=== PATIENT | female | born 1935 | race African-American/Black ===

== ENCOUNTER 2017-03-16 12:27 | Inpatient (IN) ==
[2017-03-16] MEDS ORDERED: ASPIRIN PO STA (12:50)
--- NOTE | 2017-03-16 13:04 | EKG Report ---
Test Performed on : 03/16/2017 12:54:35 PM Test Reason : CHEST PAIN Blood Pressure : / mmHG Vent. Rate : 111 BPM Atrial Rate : 111 BPM P-R Int : 172 ms QRS Dur : 082 ms QT Int : 312 ms P-R-T Axes : 071 062 086 degrees QTc Int : 424 ms Sinus tachycardia. Otherwise normal ECG When compared with ECG of 12-JUL-2014 20:02, premature ventricular complexes. are no longer present Unconfirmed Result
[2017-03-16 13:12] LABS: MANUAL DIFF NEEDED? NO
[2017-03-16 13:14] LABS: BASO% 0.4 % (0.0-0.8); EOS# 0.08 X1000 (0.0-0.7); EOS% 1.5 % (0.0-10.0); HEMATOCRIT 35.2 % (37.0-47.0); HEMOGLOBIN 11.2 g/dL (12.0-16.0); IMM GRAN# 0.01 X1000 (0.0-0.04); IMM GRAN% 0.2 % (0.0-0.5); LYMPH# 1.49 X1000 (1.2-3.4); LYMPH% 27.7 % (20.5-51.1); MCHC 31.8 g/dL (33-37); MCV 91.2 FL (81-99); MONO% 7.4 % (1.7-9.3); MPV 8.9 FL (7.4-10.4); NEUT% 62.8 % (42.2-75.2); PLT 288 X1000 (130-400); RBC 3.86 XMIL (4.2-5.4)
[2017-03-16] MEDS ORDERED: MORPHINE IV ONE (13:31)
[2017-03-16] MEDS ORDERED: LOPRESSOR IV ONE (13:31)
[2017-03-16] MEDS ORDERED: ZOFRAN IV ONE (13:31)
[2017-03-16] MEDS ORDERED: NS 500 ML IV ONE (13:31)
[2017-03-16 13:34] LABS: INR 1.08 (0.86-1.15); PROTIME 14.3 Seconds (12.1-15.5)
[2017-03-16 13:35] LABS: PTT PL 32.9 Seconds (22.6-43.9)
--- NOTE | 2017-03-16 13:37 | EKG Report ---
Test Performed on : 03/16/2017 1:26:15 PM Test Reason : cp Blood Pressure : / mmHG Vent. Rate : 105 BPM Atrial Rate : 105 BPM P-R Int : 174 ms QRS Dur : 072 ms QT Int : 316 ms P-R-T Axes : 086 043 080 degrees QTc Int : 417 ms Sinus tachycardia. Otherwise normal ECG When compared with ECG of 16-MAR-2017 12:54, (Unconfirmed) No significant change was found Unconfirmed Result
[2017-03-16 13:38] LABS: AGAP 12; ALKALINE PHOSPHATASE 53 U/L (32-104); BUN 59 mg/dL (8-22); CALCIUM 9.2 mg/dL (8.8-10.2); CHLORIDE 103 mmol/L (98-107); CK PROFILE 46 U/L (24-173); COSMO 286; GOT 19 U/L (10-30); GPT 15 U/L (10-36); MAGNESIUM 2.1 mg/dL (1.5-2.7); POTASSIUM 5.3 mmol/L (3.5-5.1); SODIUM 133 mmol/L (136-145); TCO2 18 mmol/L (25-35); TOTAL BILIRUBIN < 0.15 mg/dL (0.20-1.00); TOTAL PROTEIN 7.7 g/dL (6.3-8.3)
--- NOTE | 2017-03-16 13:42 | Diag Imaging Result Document ---
PROCEDURE NAME: CHEST-PORTABLE - 03/16/2017 PORTABLE CHEST: COMPARISON: 10/02/2015. FINDINGS: Poor inspiratory effort. Heart is not enlarged. Mild areas of increased density which may be fibrosis. No consolidation. No pleural effusions. There are calcified right hilar and paratracheal lymph nodes. IMPRESSION: Fibrosis.
[2017-03-16 15:24] LABS: BILIRUBIN URINE NEGATIVE (NEGATIVE); BLOOD URINE NEGATIVE (NEGATIVE); CLARITY SL. CLOUDY (CLEAR); COLOR YELLOW; GLUCOSE URINE NEGATIVE (NEGATIVE); LEUKOCYTES URINE 1+ (NEGATIVE); NITRITE URINE POSITIVE (NEGATIVE); PH URINE 6.5; PROTEIN URINE NEGATIVE (NEGATIVE); UROBILINOGEN URINE NORMAL
[2017-03-16 15:39] LABS: URINE CULTURE PL NEEDED? YES; URINE EPITHELIAL CELLS <10 /HPF (<10); URINE SOURCE CLEAN CATCH; URINE WBC 40 /HPF (<10)
[2017-03-16] MEDS ORDERED: HUMULIN R IV ONE (16:37)
[2017-03-16] MEDS ORDERED: D50W SYRINGE IV ONE (16:37)
[2017-03-16] MEDS ORDERED: HUMULIN R (PARKWAY) ONE (16:47)
--- NOTE | 2017-03-16 16:51 | PROVIDER DOCUMENTATION ---
This chart was entered by Aramis Abernathy Scribe, acting as scribe for Chay Clayton MD. HPI-General Adult - General Chief Complaint: Extremity Pain Stated Complaint: left arm/shoulder pain Time Seen by Provider: 03/16/17 12:43 Source: patient Allergies/Adverse Reactions: Patient Allergies Allergy/AdvReac Type Severity Reaction Status Date / Time No Known Allergies Allergy Verified 10/02/15 16:49 Home Medications: Home Medication List Medication Instructions Recorded Confirmed Last Taken Type Carvedilol [Coreg] 12.5 mg PO BID 10/20/15 09/26/16 Unknown History Hydrocodone Bit/Acetaminophen 1 tab PO Q4H PRN 10/20/15 09/26/16 Unknown History [Hydrocodon-Acetaminophen 5-325] Olmesartan/Amlodipin/Hcthiazid 1 tab PO DAILY 10/20/15 09/26/16 Unknown History [Tribenzor 20-5-12.5 mg Tablet] Acetaminophen with Codeine 1 each PO Q6H PRN PRN #30 tablet 09/26/16 Unknown Rx [Tylenol with Codeine #3 Tablet] - History of Present Illness -Gen Adult Nature of Presenting Problems: patient is a 82 y/o F that presents with left side and shoulder/arm pain since last pm. patient reports no shortness of breath, n/v/d, or fever/chills, no cough or congestion. has some left sided chest pain Location of Pain/Injury: reports: chest, upper extremity (left arm, shoulder), upper body (left side) Pain Radiation: reports: no radiation Quality of Pain: reports: dull Severity: reports: mild Onset/Duration: reports: gradual, last night Timing: reports: still present, constant Context/Activities at Onset: reports: none Modifying Factors: worse with: movement Associated Symptoms: reports: genitourinary problems, joint pain, muscle aches. denies: back/neck pain, constipation, diarrhea, fever/chills, nausea, vomiting Similar Symptoms Previously?: Yes Recently seen or treated by another doctor?: No Review of Systems - Adult - REVIEW OF SYSTEMS - ADULT Constitutional: denies: chills, fever Eyes: reports: no symptoms reported Ears, Nose, Mouth & Throat: reports: no symptoms reported Cardiovascular: reports: chest pain. denies: orthopnea, palpitations Respiratory: denies: cough, shortness of breath, wheezing Gastrointestinal: reports: no symptoms reported Genitourinary: reports: dysuria. denies: frequency, hematuria Musculoskeletal: reports: joint pain, muscle aches. denies: back pain, neck pain Integumentary: reports: no symptoms reported Neurological: reports: no symptoms reported Psychiatric: reports: no symptoms reported Endocrine: reports: no symptoms reported Hematologic/Lymphatic: reports: no symptoms reported Allergic/Immunologic: reports: no symptoms reported All Other Systems: Reviewed and Negative Past History - Adult - PAST MEDICAL HISTORY-ADULT Review of Records: reports: Old Records Reviewed, Nursing Assessment Review, Medications Reviewed Cardiovascular: reports: HTN Obstetrical/Gynecological: reports: uterine/ovarian cancer - PRIOR SURGERIES/PROCEDURES Surgical/Procedure History: reports: reviewed, not pertinent - PRIOR HOSPITALIZATIONS Prior Hospitalizations: reports: for other non-related - IMMUNIZATION STATUS Childhood Immunizations: See Nurse Assessment Flu Vaccine: See Nurse Assessment - FAMILY HISTORY Family History: reviewed, not pertinent - SOCIAL HISTORY Smoking: quit greater than 1 year, cigarettes Living Situation: family Physical Exam-General - PHYSICAL EXAM-ADULT Initial Vital Signs Reviewed: Yes - CONSTITUTIONAL General Appearance: alert, anxious - EYES Eyes: PERRL/EOMI, pink conjunctivae - HEAD, EARS, NOSE, MOUTH & THROAT HENMT: normocephalic/atraumatic, moist mucous membranes, normal ENT inspection - NECK Neck: full range of motion, normal inspection - RESPIRATORY Respiratory: lungs clear, normal breath sounds, no respiratory distress, no accessory muscle use - CARDIOVASCULAR Cardiovascular: no edema, no murmur, tachycardia - GASTROINTESTINAL (ABDOMEN) Abdominal Exam: normal bowel sounds, non tender, soft, no organomegaly, no pulsatile mass - MUSCULOSKELETAL Extremity: no pedal edema, no calf tenderness, normal capillary refill, tenderness (left shoulder) - SKIN Integumentary: normal color, warm/dry - NEUROLOGIC Neurologic: grossly normal, no motor/sensory deficits - PSYCHIATRIC Psych/Mental Status: normal thought content, normal thought process, oriented x 3, anxious Progress - PLAN OF CARE/RESULTS Progress/Plan/Lab Results: Vital Signs - 8 hr 03/16/17 12:28 Temperature 97.3 F L Pulse Rate 113 H Respiratory Rate 18 Blood Pressure 152/99 O2 Sat by Pulse Oximetry 97 Laboratory Results - last 24 hr 03/16/17 13:09 WBC 5.38 RBC 3.86 L Hgb 11.2 L Hct 35.2 L MCV 91.2 MCH 29.0 MCHC 31.8 L RDW Std Deviation 11.9 Plt Count 288 MPV 8.9 Immature Gran % (Auto) 0.2 Neut % (Auto) 62.8 Lymph % (Auto) 27.7 [place] % (Auto) 7.4 Eos % (Auto) 1.5 Baso % (Auto) 0.4 Immature Gran # (Auto) 0.01 Neut # (Auto) 3.38 Lymph # (Auto) 1.49 [place] # (Auto) 0.40 Eos # (Auto) 0.08 Baso # (Auto) 0.02 Orders Category Date Time Status Cardiac Monitoring DIRECTED Care 03/16/17 12:51 Active Saline Loc NOW Care 03/16/17 12:51 Active CHEST-PORTABLE [RAD] Stat Exams 03/16/17 12:51 Taken CBC WITH ELECTRONIC DIFF [HEME] Stat Lab 03/16/17 13:09 Completed CK PROFILE [SP CHEM] Stat Lab 03/16/17 13:09 Received COMPREHENSIVE METABOLIC PANEL [CHEM] Stat Lab 03/16/17 13:09 Received D-DIMER [address] [COAG] Stat Lab 03/16/17 13:09 Received MAGNESIUM [CHEM] Stat Lab 03/16/17 13:09 Received PRO B-NATRIURETIC PEPTIDE Stat Lab 03/16/17 13:09 Received PR[address]IME WITH INR PL [COAG] Stat Lab 03/16/17 13:[address] [COAG] Stat Lab 03/16/17 13:09 Received TROPONIN T Stat Lab 03/16/17 13:09 Received ua [URINALYSIS PL W/POSS RFLX CULT] [URINALYSIS] Stat Lab 03/16/17 12:51 Uncollected Aspirin Med 03/16/17 12:50 Discontinued 325 mg PO STAT STA EKG [EKG] Stat Ther 03/16/17 12:51 Draft Vital Signs Temp Pulse Resp BP Pulse Ox 03/16/17 14:00 83 20 126/77 98 03/16/17 12:28 97.3 F L 113 H 18 152/99 97 No Known Allergies Allergy (Verified 10/02/15 16:49) Carvedilol [Coreg] 12.5 mg PO BID 10/20/15 Hydrocodone Bit/Acetaminophen [Hydrocodon-Acetaminophen 5-325] 1 tab PO Q4H PRN 12/06/15 Olmesartan/Amlodipin/Hcthiazid [Tribenzor 20-5-12.5 mg Tablet] 1 tab PO DAILY Acetaminophen with Codeine [Tylenol with Codeine #3 Tablet] 1 each PO Q6H PRN PRN #30 tablet 09/26/16 Laboratory 03/16/17 03/16/17 03/16/17 16:07 15:35 15:35 WBC RBC Hgb Hct MCV MCH MCHC RDW Std Deviation Plt Count MPV Immature Gran % (Auto) Neut % (Auto) Lymph % (Auto) [place] % (Auto) Eos % (Auto) Baso % (Auto) Immature Gran # (Auto) Neut # (Auto) Lymph # (Auto) [place] # (Auto) Eos # (Auto) Baso # (Auto) PT INR APTT (Factor Assay) D-Dimer Sodium Potassium 6.0 H* Chloride Carbon Dioxide Anion Gap BUN Creatinine Estimated GFR/1.73 m2 BUN/Creatinine Ratio Glucose Calculated Osmolality Calcium Magnesium Total Bilirubin AST ALT Alkaline Phosphatase Creatine Kinase 46 Troponin T < 0.010 Uiz-E-Ifnxmhyywsx Pept Total Protein Albumin Globulin Albumin/Globulin Ratio Urine Source Urine Color Urine Clarity Urine pH Ur Specific [place] Urine Protein Urine Ketones Urine Blood Urine Nitrite Urine Bilirubin Urine Urobilinogen Urine Microscopic RBC Urine WBC Urine Microscopic WBC Ur Epithelial Cells Urine Bacteria Urine Glucose 03/16/17 03/16/17 03/16/17 15:00 13:09 13:09 WBC 5.38 RBC 3.86 L Hgb 11.2 L Hct 35.2 L MCV 91.2 MCH 29.0 MCHC 31.8 L RDW Std Deviation 11.9 Plt Count 288 MPV 8.9 Immature Gran % (Auto) 0.2 Neut % (Auto) 62.8 Lymph % (Auto) 27.7 [place] % (Auto) 7.4 Eos % (Auto) 1.5 Baso % (Auto) 0.4 Immature Gran # (Auto) 0.01 Neut # (Auto) 3.38 Lymph # (Auto) 1.49 [place] # (Auto) 0.40 Eos # (Auto) 0.08 Baso # (Auto) 0.02 PT 14.3 INR 1.08 APTT (Factor Assay) 32.9 D-Dimer 0.42 Sodium Potassium Chloride Carbon Dioxide Anion Gap BUN Creatinine Estimated GFR/1.73 m2 BUN/Creatinine Ratio Glucose Calculated Osmolality Calcium Magnesium Total Bilirubin AST ALT Alkaline Phosphatase Creatine Kinase Troponin T Hcb-P-Boibtorvsmx Pept Total Protein Albumin Globulin Albumin/Globulin Ratio Urine Source CLEAN CATCH Urine Color YELLOW Urine Clarity SL. CLOUDY A Urine pH 6.5 Ur Specific [place] 1.010 Urine Protein NEGATIVE Urine Ketones NEGATIVE Urine Blood NEGATIVE Urine Nitrite POSITIVE A Urine Bilirubin NEGATIVE Urine Urobilinogen NORMAL Urine Microscopic RBC Not Reportable Urine WBC 1+ A Urine Microscopic WBC 40 Ur Epithelial Cells <10 Urine Bacteria 3+ Urine Glucose NEGATIVE 03/16/17 03/16/17 03/16/17 13:09 13:09 13:09 WBC RBC Hgb Hct MCV MCH MCHC RDW Std Deviation Plt Count MPV Immature Gran % (Auto) Neut % (Auto) Lymph % (Auto) [place] % (Auto) Eos % (Auto) Baso % (Auto) Immature Gran # (Auto) Neut # (Auto) Lymph # (Auto) [place] # (Auto) Eos # (Auto) Baso # (Auto) PT INR APTT (Factor Assay) D-Dimer Sodium 133 L Potassium 5.3 H Chloride 103 Carbon Dioxide 18 L Anion Gap 12 BUN 59 H Creatinine 1.3 H Estimated GFR/1.73 m2 39 BUN/Creatinine Ratio 45 Glucose 148 H Calculated Osmolality 286 Calcium 9.2 Magnesium 2.1 Total Bilirubin < 0.15 L AST 19 ALT 15 Alkaline Phosphatase 53 Creatine Kinase 46 Troponin T < 0.010 Gkg-M-Aedqaqnpmsr Pept 87 Total Protein 7.7 Albumin 4.0 Globulin 4.0 Albumin/Globulin Ratio 1.0 Urine Source Urine Color Urine Clarity Urine pH Ur Specific [place] Urine Protein Urine Ketones Urine Blood Urine Nitrite Urine Bilirubin Urine Urobilinogen Urine Microscopic RBC Urine WBC Urine Microscopic WBC Ur Epithelial Cells Urine Bacteria Urine Glucose Orders Category Date Time Status Cardiac Monitoring DIRECTED Care 03/16/17 12:51 Completed Saline Loc NOW Care 03/16/17 12:51 Completed CHEST-PORTABLE [RAD] Stat Exams 03/16/17 12:51 Completed CBC WITH ELECTRONIC DIFF [HEME] Stat Lab 03/16/17 13:09 Completed CK PROFILE [SP CHEM] Stat Lab 03/16/17 13:09 Completed CK PROFILE [SP CHEM] Stat Lab 03/16/17 15:35 Completed COMPREHENSIVE METABOLIC PANEL [CHEM] Stat Lab 03/16/17 13:09 Completed D-DIMER [address] [COAG] Stat Lab 03/16/17 13:09 Completed MAGNESIUM [CHEM] Stat Lab 03/16/17 13:09 Completed POTASSIUM [CHEM] Stat Lab 03/16/17 16:07 Completed PRO B-NATRIURETIC PEPTIDE Stat Lab 03/16/17 13:09 Completed PR[address]IME WITH INR PL [COAG] Stat Lab 03/16/17 13:[address] [COAG] Stat Lab 03/16/17 13:09 Completed TROPONIN T Stat Lab 03/16/17 13:09 Completed TROPONIN T Stat Lab 03/16/17 15:35 Completed URINE CULTURE [RM] Routine Lab 03/16/17 15:39 Ordered ua [URINALYSIS PL W/POSS RFLX CULT] [URINALYSIS] Stat Lab 03/16/17 15:00 Completed 0.9% Sodium Chloride Inj [Ns] 500 ml Med 03/16/17 13:31 Discontinued IV 250 mls/hr Aspirin Med 03/16/17 12:50 Discontinued 325 mg PO STAT STA Dextrose 50% Syringe [D50w Syringe] Med 03/16/17 16:37 Discontinued 50 ml IV NOW ONE Insulin Human Regular [Humulin R] Med 03/16/17 16:37 Discontinued 10 unit IV NOW ONE Metoprolol [Lopressor] Med 03/16/17 13:31 Discontinued 5 mg IV NOW ONE Morphine Med 03/16/17 13:31 Discontinued 2 mg IV NOW ONE Ondansetron [Zofran] Med 03/16/17 13:31 Discontinued 4 mg IV NOW ONE EKG [EKG] Stat Ther 03/16/17 12:51 Draft EKG [EKG] Stat Ther 03/16/17 13:30 Draft EKG [EKG] Stat Ther 03/16/17 16:37 Ordered Result Diagrams: 03/16/17 13:09 03/16/17 16:07 - EKG 1 Time of EKG reading by physician:: 12:54 EKG Read and Signed by:: Chay Clayton EKG Interpretation (*Must complete 3 of following elements*): Normal Rate: 111 Rhythm: Sinus Tachycardia [place]: normal QRS: normal ( 3) IN Interval: normal ST Wave: normal - XRAY 1 XRAY Study: Chest Impression: Abnormal XRAY Interpretation: fibrosis, poor inspiratory effort - CONSULTS/PCP/HOSPITALIST Notification #1 *Consult/PCP/Hospitalist*: Dr.Putman Owens Discussed: 15:20 Reason/Comments: second set, if negative d/c home Consult Disposition: other #2 Consult: Dr.Putman Owens Discussed: 16:44 Consult Disposition: Admit Departure - Departure Time of Disposition Decision: 16:45 DIAGNOSIS: Hyperkalemia, Acute kidney injury, Chest pain in adult Disposition: ADMITTED INPATIENT 09 Certified Medical Emergency: Emergent Condition: Stable Referrals and Follow-Ups: Ricci Pickering MD [Primary Care Provider] - Work Excuses: Return to School/Parent Work - Critical Care Note This patient required my direct & personal management of CC.: Yes Total Time (mins): 40 Critical Care Statement: This patient required my direct personal management to treat or rule out processes, the absence of which, could potentiallly result in sudden, clinically significant life or limb threatening deterioration. This chart was documented by the indicated scribe, (Aramis Abrenathy, Scribe) and accurately reflects the services I performed and decisions made by me, Chay Clayton MD, as attested by the provider's signature.
--- NOTE | 2017-03-16 16:57 | EKG Report ---
Test Performed on : 03/16/2017 4:47:08 PM Test Reason : ELEVATED K Blood Pressure : / mmHG Vent. Rate : 104 BPM Atrial Rate : 104 BPM P-R Int : 192 ms QRS Dur : 088 ms QT Int : 342 ms P-R-T Axes : 081 073 085 degrees QTc Int : 449 ms Sinus tachycardia. Otherwise normal ECG When compared with ECG of 16-MAR-2017 13:26, (Unconfirmed) No significant change was found Unconfirmed Result
[2017-03-16] MEDS ORDERED: NS 1,000 ML IV ONE (17:05)
[2017-03-16] MEDS: NORCO-5 PO PRN (20:57)
[2017-03-16 21:53] LABS: ALBUMIN 4.2 g/dL (3.5-5.0); CALCIUM 9.3 mg/dL (8.8-10.2); POTASSIUM 5.4 mmol/L (3.5-5.1); TOTAL BILIRUBIN 0.2 mg/dL (0.20-1.00); TOTAL PROTEIN 7.7 g/dL (6.3-8.3)
[2017-03-17] MEDS ORDERED: ZOFRAN IV PRN (05:53)
[2017-03-17] MEDS: NS 1,000 ML IV SCH (18:27)
[2017-03-17] MEDS: NORCO-5 PO PRN (18:39)
[2017-03-18] MEDS: NORCO-5 PO PRN
[2017-03-18] MEDS: NS 1,000 ML IV SCH ×3 (01:47→12:42)
[2017-03-18 06:28] LABS: ALBUMIN 3.7 g/dL (3.5-5.0); CALCIUM 8.7 mg/dL (8.8-10.2); POTASSIUM 5.5 mmol/L (3.5-5.1); TOTAL BILIRUBIN 0.3 mg/dL (0.20-1.00); TOTAL PROTEIN 6.8 g/dL (6.3-8.3)
[2017-03-18] MEDS: CIPRO PO SCH ×2 (08:06)
[2017-03-18 15:21] VITALS: BP 126/74
--- NOTE | 2017-04-22 04:07 | HISTORY AND PHYSICAL ---
HISTORY OF PRESENT ILLNESS: This patient presented to the emergency room where she complained of pain on the left side of her chest, shoulder, arm that had been there previously since the night before. She reports no shortness of breath. No nausea, vomiting, diarrhea. No fever, chills, cough or congestion. The pain is located in her chest and left upper extremity upper body. The patient was seen in the ER. This is a complaint I see her with for the last 20 years. When she presented to the ER, temperature was afebrile at 97.3, pulse was 113, respiratory was 18, blood pressure 152/99, O2 saturation was 97. CBC white count was 5380, hematocrit was 35.2, platelet count was 288,000. She had normal cardiac enzymes. Her potassium was done and was said to be elevated and it was 6. Urinalysis was essentially negative. They did a potassium. It was 5.3. Her BUN is 59. Creatinine was 1.3. So, she had an EKG and chest x-ray showed fibrosis, poor inspiration. EKG was negative and the elevated BUN, creatinine and potassium was what led to her admission. MEDICATIONS: Her medications on admission were carvedilol 12.5 b.i.d., hydrocodone 5, olmesartan/amlodipine/hydrochlorothiazide, Tribenzor, which I think is dehydrating her and making her potassium elevated. She is also on Tylenol with codeine. So, she was admitted for prerenal azotemia with hyperkalemia, atypical chest pain. REVIEW OF SYSTEMS: Constitutional: She had no fever, chills. No significant weight loss. Eyes: No change in visual lopez. No irritation. Ears, nose and throat: No sinusitis, otitis or pharyngitis. Cardiovascular: She had chest pain but denies orthopnea, palpitations, edema, PND, dizziness, syncope. Respiratory: Denied cough, shortness breath or wheezing. Nonsmoker. Gastrointestinal: No nausea, vomiting, diarrhea, constipation, melena, hematochezia. : She has had some dysuria but denies frequency or hematuria. Musculoskeletal: She has had some just generalized joint pain, particularly her left shoulder, and muscle aches. No back pain, neck pain. Skin: No rashes. Neurological: No focal deficits. No seizure disorder. No migraine disorder. Psychiatric: Negative. Endocrine: No polyuria, polydipsia, heat or cold intolerance. Hematological: No bruising, bleeding issues. Allergies: No asthma or hay fever were present. PAST MEDICAL HISTORY: She has a history of hypertension. She also has a history of uterine and ovarian cancer that she has been dealing with for some time but is not of any issue as of yet. PHYSICAL EXAMINATION: VITAL SIGNS: At the time of admission, temp was 97.3 degrees, pulse was 113, respiratory was 18, BP 152/97, O2 saturation was 97. HEENT: Head was normocephalic. Temporal wasting. Eyes were PERRLA. EOMs intact. Sclerae clear. Fundi benign. Nares patent. Oropharynx negative. NECK: Supple without thyromegaly. CHEST: Increased breath sounds. No consolidative findings were appreciated. ABDOMEN: Soft, scaphoid. No hepatosplenomegaly. No CVA tenderness. EXTREMITIES: Negative for clubbing, cyanosis, or edema. NEUROLOGIC: Exam was intact. ADMITTING DIAGNOSIS: 1. Prerenal azotemia. 2. Hyperkalemia. cc: Ricci Pickering MD
--- NOTE | 2017-04-22 10:55 | DISCHARGE SUMMARY ---
ADMISSION DATE: 03/16/2017 DISCHARGE DATE: 03/18/2017 HISTORY OF PRESENT ILLNESS: A patient of mine that is on Tribenzor who has a history of cervical cancer. Came in with the same old complaint of chest pain in her left shoulder girdle. It is more positional than anything else. While she was in the ER, the random tests that she had were, for the most part, negative except for her BUN was elevated at 59, creatinine 1.3, with a of 5.3. Earlier, it was reportedly 6. DATABASE: Imaging included a chest x-ray that was negative. She had some calcified peritracheal lymph nodes. Her EKGs, sinus tachycardia, otherwise negative. CBC: White count was 5.38, was 352. BUN 51 and creatinine 1.2. With rehydration, she got down to 23.1. HOSPITAL COURSE: She had been feeling weak. Potassium was 6. It went to 5.4, 5.7, 5.5. We were going to change her medications. Her cardiac enzymes were negative. We are going to leave off the Benicar which I think is elevating her. She had a culture that grew out Klebsiella ozaenae. Urine was positive for nitrites and 40 WBCs. Vital signs were stable throughout the hospital stay. Her medications on admission included Tribenzor that we subsequently stopped, aspirin, Zofran. Metoprolol 5 IV was administered in the ER. She was given some insulin 10 units IV 1 time. Cipro with correction of her renal function and potassium. She was sent out of the hospital. We will hold back her Benicar. She will follow up in the office and we will see what her potassium subsequently does leaving off the Benicar. cc: Ricci Pickering MD
== END 2017-03-18 16:25 | disposition home or self-care (01) ==
LOC: P.ED 12:27 → P.MEDSURG 12:27 → OBSVTOIN 17:49
PROVIDERS: ADMIT Internal Medicine; ATTEND Internal Medicine